=== PATIENT | female | born 1980 | race Caucasian/White ===

== ENCOUNTER → 2018-01-16 15:02 | Outpatient (CLI) | payer BC, SELFPAY ==
[2018-01-16 17:33] LABS: Absolute Lymphocyte Count 1.98 X10^3/ul (0.83-4.51); Absolute Neutrophil Count 2.3 X10^3/uL (2.0-7.7); Basophil# 0.08 X10^3/uL; Basophil% 1.6 % (0-1); Eosinophil# 0.19 X10^3/uL; Eosinophils% 3.8 % (0-5); Hematocrit 37.6 % (37-47); Hemoglobin 12.7 g/dl (12.0-15.0); Lymphocyte # 1.98 X10^3/ul (4.0); Lymphocyte % 39.6 % (19-41); Mean Corp Hgb Conc 33.8 g/gl (32-36); Mean Corpuscular Hgb 29.6 pg (27.0-32.0); Mean Corpuscular Volume 87.6 fL (81-99); Mean Platelet Vol. 11.9 fl (6.2-12.0); Monocyte# 0.44 X10^3/uL; Monocyte% 8.8 % (0-10); Platelet Count 152 K/mm3 (150-450); RBC Distribution Width CV 13.8 % (11.6-14.6); RBC Distribution Width SD 44.1 fl (35.1-43.9); Red Blood Count 4.29 M/mm3 (4.2-5.4)
[2018-01-16 17:50] LABS: POSITIVE COUNT NO; POSITIVE DIFFERENTIAL NO; POSITIVE MORPHOLOGY NO
[2018-01-16 17:59] LABS: ALB/GLOB Ratio 1.1 RATIO (0.9-2.4); AST(SGOT) 33 U/L (15-37); Alanine Aminotransfer ALT/SGPT 68 U/L (13-56); Albumin, Serum 3.8 g/dL (3.2-5.0); Alkaline Phosphatase 74 U/L (45-117); Anion Gap 6 (5-15); BUN 17 mg/dL (7-18); BUN/Creat Ratio 21.6 RATIO (10-20); Calcium,Total 8.4 mg/dL (8.5-10.1); Chloride 98 mmol/L (98-107); Creatinine, Serum 0.79 mg/dL (0.55-1.02); EST Glomerular Filtration Rate 86 mL/min (>60); Est Glom Filt Rate - Afr Amer 104 mL/min (>60); Globulin 3.4 g/dL (2.2-4.2); Glucose 82 mg/dL (74-106); Protein, Total 7.2 g/dL (6.4-8.2); Sodium Level 132 mmol/L (136-145); Thyroid Stim Hormone (TSH) 2.51 uIU/mL (0.358-3.74)
== END ==
PROVIDERS: Visit Provider Family Medicine
DX: Z00.00 Encounter for general adult medical examination without abnormal findings (principal); R17 Unspecified jaundice
CPT/HCPCS: 36415; 80053; 84443; 85025

== ENCOUNTER → 2018-08-25 15:57 | Outpatient (CLI) | payer BC, SELFPAY ==
[2018-08-29 12:48] LABS: HPV Reflexed? NOT INDICATED
== END ==
PROVIDERS: Referring Provider Obstetrics & Gynecology; Visit Provider Obstetrics & Gynecology
DX: Z12.4 Encounter for screening for malignant neoplasm of cervix (principal)
CPT/HCPCS: 87624; 88175; G0145

== ENCOUNTER → 2018-10-27 07:19 | Outpatient (CLI) | payer BC, SELFPAY ==
--- NOTE | 2018-10-27 07:31 | BI_ITS ---
MAMMOGRAPHY - BILATERAL SCREENING 3-D TOMOSYNTHESIS REASON FOR EXAM: Female, 38 years old. Baseline Bilateral Screening 3-D tomosynthesis PERTINENT HISTORY: No significant family history. TECHNIQUE: 2-D mammograms and 3-D Tomosynthesis of the breast (s) were performed. CAD was performed. COMPARISON: None. Baseline examination. FINDINGS: The breast composition is heterogeneously dense that can obscure small breast masses. Scattered benign calcifications are seen. No dense spiculated masses or suspicious microcalcifications are identified. No architectural distortion is identified. There is no skin thickening or retraction BI/SCREENING MAMM (CAD), BILAT IMPRESSION: No mammographic signs of malignancy. Routine yearly mammograms recommended. ASSESSMENT CATEGORY: BIRADS Category 1: Negative. A letter regarding these results will be sent to the patient by the facility within 30 days. FOLLOW UP RECOMMENDATION: Yearly follow up mammogram recommended. (A) Approximately 10% of breast cancers are not detected by mammography. A normal mammogram should not delay biopsy of a clinically suspicious abnormality. Electronically Signed: David Taylor MD at 13:44 EDT , Service support ,
== END ==
PROVIDERS: Visit Provider Obstetrics & Gynecology
DX: Z12.31 Encounter for screening mammogram for malignant neoplasm of breast (principal)
CPT/HCPCS: 77063; 77067

== ENCOUNTER → 2019-05-28 16:02 | Outpatient (CLI) | payer BC, SELFPAY ==
[2019-05-28 17:39] LABS: AST(SGOT) 22 U/L (15-37); Alanine Aminotransfer ALT/SGPT 33 U/L (13-56); Albumin, Serum 3.8 g/dL (3.2-5.0); Alkaline Phosphatase 74 U/L (45-117); Bilirubin, Direct 0.11 mg/dL (0.00-0.30); Globulin 3.1 g/dL (2.2-4.2); Protein, Total 6.9 g/dL (6.4-8.2)
== END ==
PROVIDERS: Family Provider Family Medicine; PCP Family Medicine; Visit Provider Family Medicine
DX: R94.5 Abnormal results of liver function studies (principal)
CPT/HCPCS: 36415; 80076

== ENCOUNTER → 2020-01-01 07:48 | Outpatient (CLI) | payer BC, SELFPAY ==
--- NOTE | 2020-01-01 07:57 | BI_ITS ---
MAMMOGRAPHY - BILATERAL SCREENING 3-D TOMOSYNTHESIS REASON FOR EXAM: Female, 39 years old. Routine screening PERTINENT HISTORY: NO FM HX , LT IMF MOLE MARKED. TECHNIQUE: 2-D mammograms and 3-D Tomosynthesis of the breast (s) were performed. CAD was performed. COMPARISON: 10/27/2018 FINDINGS: The breast composition is composed of scattered fibroglandular density. Scattered benign calcifications are seen. No dense spiculated masses or suspicious microcalcifications are identified. No architectural distortion is identified. There is no skin thickening or retraction. There has been no significant change since the prior study. BI/SCREEN MAMM (CAD) W/IRINEO BILAT IMPRESSION: No mammographic signs of malignancy. Routine yearly mammograms recommended. ASSESSMENT CATEGORY: BIRADS Category 1: Negative. A letter regarding these results will be sent to the patient by the facility within 30 days. FOLLOW UP RECOMMENDATION: Yearly follow up mammogram recommended. (A) Approximately 10% of breast cancers are not detected by mammography. A normal mammogram should not delay biopsy of a clinically suspicious abnormality. Electronically Signed: Madhu Sung MD at 8:48 EDT , Service support ,
== END ==
PROVIDERS: PCP Family Medicine; Referring Provider Obstetrics & Gynecology; Visit Provider Obstetrics & Gynecology
DX: Z12.31 Encounter for screening mammogram for malignant neoplasm of breast (principal)
CPT/HCPCS: 77063; 77067

== ENCOUNTER → 2020-03-11 11:40 | Outpatient (CLI) | payer BC, SELFPAY ==
[2020-03-11 15:45] LABS: Thyroid Stim Hormone (TSH) 1.79 uIU/mL (0.358-3.74)
== END ==
PROVIDERS: PCP Family Medicine; Visit Provider Family Medicine
DX: F41.0 Panic disorder [episodic paroxysmal anxiety] (principal)
CPT/HCPCS: 36415; 84443

== ENCOUNTER → 2020-09-21 | Outpatient (CLI) | payer BC, SELFPAY ==
[2020-09-26 15:39] LABS: HPV Reflexed? NOT INDICATED
== END | disposition home or self-care (01) ==
LOC: LABSPEC 14:48
PROVIDERS: PCP Family Medicine; Visit Provider Obstetrics & Gynecology
DX: Z12.4 Encounter for screening for malignant neoplasm of cervix (principal)
CPT/HCPCS: 88175; G0145

== ENCOUNTER → 2020-10-05 16:38 | Outpatient (CLI) | payer BC, SELFPAY ==
--- NOTE | 2020-10-05 16:30 | EMB_PTH ---
PATIENT: EKTA HODGE LOC: [facility] U#:[id number] AGE/SX: 44/F ROOM: RE10/05/[address]: Dr. Jones Noguera MD : 1980 BED: DIS: SPEC #: [id number] RECD: 10/05/20 17:01 STATUS: EUGENE REPaloma #: [id number] KAREN: 10/05/20 16:[address]: Jones Noguera DEPT: SURGICAL PATHOLOGY RECD BY: Mary Sandoval ENTERED: 10/06/20 07:19 SP TYPE: ENDOM BX/C MATT DR: Dr. Terri Hennessy MD Tissues: Endometrium, NOS Procedures: Surgery Specimen Level IV HEADER OPERATION: Endometrial biopsy PRE-OP DIAGNOSIS: N92.4 TISSUE SUBMITTED: Endometrial biopsy MICROSCOPIC DIAGNOSIS Endometrial biopsy: Proliferative endometrium. SJ:trace 10/07/2020 MICROSCOPIC DESCRIPTION Slides are reviewed. GROSS DESCRIPTION Received in fixative is one container labeled with the patient's name and designated EM biopsy. The specimen consists of multiple fragments of hemorrhagic soft tissue mixed with mucoid tissue that in aggregate measure 3 x 2.5 x 0.3 cm. The specimen is totally submitted in one cassette. / SJ:trace 10/06/20 TC:4 CPT: 97039
== END ==
PROVIDERS: PCP Family Medicine; Visit Provider Obstetrics & Gynecology
DX: N92.4 Excessive bleeding in the premenopausal period (principal)
CPT/HCPCS: 88305

== ENCOUNTER 2020-11-21 08:59 | Day surgery (SDC) | payer BC, SELFPAY ==
[2020-11-16 14:46] LABS: Hematocrit 40.4 % (37-47); Hemoglobin 13.2 g/dL (12.0-15.0); Mean Corp Hgb Conc 32.7 g/dL (32-36); Mean Corpuscular Hgb 28.9 pg (27.0-32.0); Mean Corpuscular Volume 88.6 fL (81-99); Mean Platelet Vol. 10.3 fl (6.2-12.0); Platelet Count 203 K/mm3 (150-450); RBC Distribution Width CV 12.9 % (11.6-14.6); RBC Distribution Width SD 42.1 fl (35.1-43.9); Red Blood Count 4.56 M/mm3 (4.2-5.4)
[2020-11-16 14:53] LABS: Partial Thromboplast Time 25.9 Seconds (24.1-36.2); Prothrombin Time (Protime)PT. 12.1 SECONDS (11.7-14.9)
[2020-11-16 15:28] LABS: Thyroid Stim Hormone (TSH) 2.21 uIU/mL (0.358-3.74)
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
[2020-11-21] VITALS (8 sets, daily range): BP systolic 102–120; BP diastolic 57–83; PULSE 46–61; RESP 16–18; TEMP 36.2–36.7; O2SAT 98–100; BMI 26.2
[2020-11-21] MEDS: Lactated Ringers 1,000 ML 100 ML IV (09:56)
--- NOTE | 2020-11-21 10:23 | PCM.OPRPT ---
Problems Associated Problem List Diagnoses (1) Menorrhagia: Report of Operation Date of Procedure: 11/21/20 Pre-Operative Diagnosis: Menorrhagia Post-Operative Diagnosis: Menorrhagia Surgery/Procedure Performed:: Diagnostic Hysteroscopy, Dilation and Curettage, Hydrothermal Ablation Description of Surgical Findings:: 8 cm endometrial cavity without evidence of polyps; multiple 1 to 2 cm fibroids palpated with the endometrial curette. Surgeon: Jones Noguera Type of Anesthesia: General (LMA) Anesthesiologist: Jessica Schmidt Specimen's removed: Endometrial curettings Estimated Blood Loss (mL): Minimal Fluids Replaced: Crystalloid Description of Procedure: Indication: This is a 40 year old patient who has been having problems with extremely heavy menses. Conservative measures have not been helpful. Endometrial sampling was benign and pelvic ultrasound showed that ablation may be helpful. Pt has been counseled regarding the risks, benefits and alternatives of this procedure and all questions answered. She understands that only about half of patients will have amenorrhea after this procedure. Procedure: Patient taken to the operating room where after induction of general anesthesia the patient was prepped and draped in the usual sterile fashion. Bladder was drained of urine with a catheter. Anterior cervix grasped and cervix was dilated to about 17 [place] size. Hysteroscopic hydrothermal ablation (HTA) unit was place in the cervix and the above findings were noted. HTA unit was removed and the uterus was gently curretted removing all contents. An HTA ablation cycle was then carried out at about 90 degrees Centigrade for 10 minutes with virtually no fluid loss during the procedure. After an appropriate cool down the HTA unit was removed with minimal bleeding noted. The patient tolerated the procedure well and was taken to the recovery room in satisfactory condition. Sponge, instruments and needle counts were all correct. There were no apparent complications of the surgery. Cefotan 2 gms IV was given prior to the procedure. Estimated Blood Loss: Minimal Specimen to Pathology: Endometrial Curettings Grafts/Implants Used: None Complications None Admit VTE Documentation VTE Present on Admission: Yes VTE Mechan Device Prophylaxis: SCD's
--- NOTE | 2020-11-21 10:27 | PCM.DC ---
Discharge Instructions Diet Discharge Diet: No restrictions (Increase fluid intake for the next 48 hours.) and - (Increase fluid intake for 48 hours.) Activity Discharge Activity: Return to Normal Activity, May Shower and May Take a Tub Bath (in 7 days) May resume sexual activity in: 3 weeks Additional Activity Instructions:: Ambulate often the next week after surgery. Nothing in the vagina for 3 weeks. Dressing / Incision Call your doctor if you observe: Fever of 101 or Higher, Inability to urinate, Inability to have a bowel movement and Using more than one pad per hour Additional Dressing/Incision Instructions:: Nothing in the vagina for3 weeks please; Use Ibuprophen 800 mg orally every 8 hours as needed for pain. Can also add Tylenol 1000 mg every 8 hours if needed for pain. If Ibuprophen and Tylenol are not effective then use the Oxycodone but keep in mind it can cause constipation issues. Drink lots of water. Call if bleeding more than a pad per hour. Steps and walking are OK. Activity is encouraged but do not over do it !! Follow Up Care Please Follow Up With: Jones Noguera MD When: Call [phone] for an appointment in 3 to 4 weeks. Test Results: Test results from this visit will be discussed in further detail at your follow-up appointment, if applicable. Discharge Plan Admission Primary Reason for Your Visit: Endometrial Ablation Attending Provider: Jones Noguera Primary Care Provider: Terri Hennessy Discharge Orders/Prescriptions Prescriptions: New oxycodone 5 mg capsule 5 mg PO Q6H PRN (Reason: pain (scale score 7-10)) 7 Days Qty: 5 RF: 0 Continued multivitamin Tablet 1 tab PO DAILY RF: 0 carica papaya [Papaya Enzyme] Tablet 2 tab PO TID RF: 0 cholecalciferol (vitamin D3) [Vitamin D3] 25 mcg (1,000 unit) Tablet 25 mcg PO DAILY RF: 0 Referrals / Follow Up: Terri Hennessy MD [Primary Care Provider] - Disposition Disposition (needs filled in before D/C Order can be placed): Home, self care
[2020-11-21] MEDS: Cefotetan 2 GM in 0.9% NS 100 ML IV (10:30)
--- NOTE | 2020-11-21 11:05 | EMB_PTH ---
PATIENT: EKTA HODGE [place] [facility] [id number] AGE/SX: 40/F ROOM: RE11/21/[address]: Dr. Jones Noguera MD : 1980 BED: DIS: 11/21/2020 SPEC #: [id number] RECD: 11/21/20 12:23 STATUS: EUGENE REQ #: [id number] KAREN: 11/21/20 11:[address]: Jones Noguera DEPT: SURGICAL PATHOLOGY RECD BY: Mary Sandoval ENTERED: 11/21/20 12:59 SP TYPE: ENDOM BX/C OTHR DR: Dr. Terri Hennessy MD Tissues: Endometrium, NOS Procedures: Surgery Specimen Level IV HEADER OPERATION: Hysteroscopy, D & C hydroablation PRE-OP DIAGNOSIS: Premenopausal menorrhagia TISSUE SUBMITTED: Endometrial curettings MICROSCOPIC DIAGNOSIS Endometrial curettings: Weakly secretory endometrium with extensive glandular and stromal breakdown. See comment. SJ:trace 11/22/2020 COMMENT Please make reference to previous specimen ([id number]) endometrial biopsy with diagnosis of ?proliferative endometrium.? MICROSCOPIC DESCRIPTION Slides are reviewed. GROSS DESCRIPTION Received in fixative is one container labeled with the patient's name and designated endometrial curettings. The specimen consists of multiple irregular fragments of kaye-pink soft tissue that in aggregate measure 2.5 x 1.5 x 0.2 cm. The specimen is totally submitted in one cassette. / DARIA:trace 11/21/20 TC:5 CPT: 36784
[2020-11-21] MEDS: oxyCODONE 5 MG Tablet PO (12:40)
== END 2020-11-21 13:38 | disposition home or self-care (01) ==
LOC: SDC 09:00 → AC 09:19
PROVIDERS: PCP Family Medicine; Referring Provider Obstetrics & Gynecology; Visit Provider Obstetrics & Gynecology
PROC: 0U5B8ZZ Destruction of Endometrium, Via Natural or Artificial Opening Endoscopic (ICD-10-PCS; CPT 58563; principal; 2020-11-21 10:50)
DX: N92.4 Excessive bleeding in the premenopausal period (principal); Z20.822 Contact with and (suspected) exposure to COVID-19
CPT/HCPCS: 58563; 36415; 84443; 85027; 85610; 85730; 86850; 86900; 86901; 87426; 88305; C9803; J7120; J2405

== ENCOUNTER → 2021-01-02 07:36 | Outpatient (CLI) | payer BC, SELFPAY ==
[2020-11-21 09:44] VITALS: BMI 26.2
--- NOTE | 2021-01-02 07:38 | BI_ITS ---
MAMMOGRAPHY - BILATERAL SCREENING REASON FOR EXAM: Female, 40 years old. Routine annual screening examination. PERTINENT HISTORY: Non-contributory. TECHNIQUE: Digital bilateral breast irineo (3D mammographic acquisition) in the CC and MLO projections. 2-D mediolateral oblique (MLO) and craniocaudad (CC) views of both breasts were obtained. CAD: Full Field Digital Mammography with Computer Added Detection was performed. COMPARISON: Comparison is made with prior study dated 01/01/2020 and 10/27/2018. FINDINGS: Breast Composition: The breasts are heterogeneously dense, which may obscure small masses. There are no dominant masses or suspicious calcifications. No other significant abnormalities are identified. There has been no significant change since the prior study. BI/SCRN MAMM (CAD)W/IRINEO BILAT IMPRESSION: Stable bilateral screening mammogram. Yearly follow-up mammogram recommended. (A) ASSESSMENT CATEGORY: BIRADS Category 1: Negative. A letter regarding these results will be sent to the patient by the facility within 30 days. Approximately 10% of breast cancers are not detected by mammography. A normal mammogram should not delay biopsy of a clinically suspicious abnormality. [id number] Electronically Signed: Nicholas Lizama MD at 9:31 EDT , Service support ,
== END ==
PROVIDERS: PCP Family Medicine; Referring Provider Obstetrics & Gynecology; Visit Provider Obstetrics & Gynecology
DX: Z12.31 Encounter for screening mammogram for malignant neoplasm of breast (principal)
CPT/HCPCS: 77063; 77067

== ENCOUNTER → 2022-01-26 | Outpatient (CLI) | payer BC, SELFPAY ==
--- NOTE | 2022-01-26 08:08 | BI_ITS ---
MAMMOGRAPHY - BILATERAL SCREENING REASON FOR EXAM: Female, 41 years old. Routine annual screening examination. PERTINENT HISTORY: Non-contributory. TECHNIQUE: Digital bilateral breast irineo (3D mammographic acquisition) in the CC and MLO projections. 2-D mediolateral oblique (MLO) and craniocaudad (CC) views of both breasts were obtained. CAD: Full Field Digital Mammography with Computer Added Detection was performed. COMPARISON: Comparison is made with prior study dated 01/02/2021 and 01/01/2020. FINDINGS: Breast Composition: The breasts are heterogeneously dense, which may obscure small masses. There are no dominant masses or suspicious calcifications. No other significant abnormalities are identified. There has been no significant change since the prior study. BI/SCRN MAMM (CAD)W/IRINEO BILAT IMPRESSION: Stable bilateral screening mammogram. Yearly follow-up mammogram recommended. (A) ASSESSMENT CATEGORY: BIRADS Category 1: Negative. A letter regarding these results will be sent to the patient by the facility within 30 days. Approximately 10% of breast cancers are not detected by mammography. A normal mammogram should not delay biopsy of a clinically suspicious abnormality. [id number] Electronically Signed: Nicholas Lizama MD at 10:22 EDT ,
== END | disposition home or self-care (01) ==
PROVIDERS: PCP Family Medicine; Referring Provider Obstetrics & Gynecology; Visit Provider Obstetrics & Gynecology
DX: Z12.31 Encounter for screening mammogram for malignant neoplasm of breast (principal)
CPT/HCPCS: 77063; 77067

== ENCOUNTER → 2023-02-15 | Outpatient (CLI) | payer BC, SELFPAY ==
[2023-02-21 14:09] LABS: HPV APTIMA, High Risk Negative (Negative)
== END | disposition home or self-care (01) ==
LOC: LABSPEC 15:33
PROVIDERS: PCP Family Medicine; Visit Provider Nurse Practitioner Women's Health
DX: Z12.4 Encounter for screening for malignant neoplasm of cervix (principal)
CPT/HCPCS: 87624; 88175; G0145

== ENCOUNTER → 2023-04-05 | Outpatient (CLI) | payer BC, SELFPAY ==
--- NOTE | 2023-04-05 10:39 | BI_ITS ---
MAMMOGRAPHY - BILATERAL SCREENING REASON FOR EXAM: Female, 42 years old. Routine annual screening examination. PERTINENT HISTORY: Non-contributory. TECHNIQUE: Digital bilateral breast irineo (3D mammographic acquisition) in the CC and MLO projections. 2-D mediolateral oblique (MLO) and craniocaudad (CC) views of both breasts were obtained. CAD: Full Field Digital Mammography with Computer Added Detection was performed. COMPARISON: Comparison is made with prior study dated January 26, 2022 and January 02, 2021. FINDINGS: Breast Composition: The breasts are heterogeneously dense, which may obscure small masses. There are no dominant masses or suspicious calcifications. No other significant abnormalities are identified. There has been no significant change since the prior study. BI/SCRN MAMM (CAD)W/IRINEO BILAT IMPRESSION: Stable bilateral screening mammogram. Yearly follow-up mammogram recommended. (A) ASSESSMENT CATEGORY: BIRADS Category 1: Negative. A letter regarding these results will be sent to the patient by the facility within 30 days. Approximately 10% of breast cancers are not detected by mammography. A normal mammogram should not delay biopsy of a clinically suspicious abnormality. [id number] Electronically Signed: Nicholas Lizama MD at 11:32 EDT ,
== END | disposition home or self-care (01) ==
LOC: OPBI 10:36
PROVIDERS: PCP Family Medicine; Visit Provider Family Medicine
DX: Z12.31 Encounter for screening mammogram for malignant neoplasm of breast (principal)
CPT/HCPCS: 77063; 77067

== ENCOUNTER → 2024-06-05 | Outpatient (CLI) | payer BC, SELFPAY ==
--- NOTE | 2024-06-05 14:48 | BI_ITS ---
MAMMOGRAPHY - BILATERAL SCREENING REASON FOR EXAM: Female, 43 years old. Routine annual screening examination. PERTINENT HISTORY: Non-contributory. TECHNIQUE: Digital bilateral breast irineo (3D mammographic acquisition) in the CC and MLO projections. 2-D mediolateral oblique (MLO) and craniocaudad (CC) views of both breasts were obtained. CAD: Full Field Digital Mammography with Computer Added Detection was performed. COMPARISON: Comparison is made with prior study April 05, 2023 and January 26, 2022. FINDINGS: Breast Composition: The breasts are heterogeneously dense, which may obscure small masses. There are no dominant masses or suspicious calcifications. No other significant abnormalities are identified. There has been no significant change since the prior study. BI/SCRN MAMM (CAD)W/IRINEO BILAT IMPRESSION: Stable bilateral screening mammogram. Yearly follow-up mammogram recommended. (A) ASSESSMENT CATEGORY: BIRADS Category 1: Negative. A letter regarding these results will be sent to the patient by the facility within 30 days. Approximately 10% of breast cancers are not detected by mammography. A normal mammogram should not delay biopsy of a clinically suspicious abnormality. [id number] Electronically Signed: Nicholas Lizama MD at 9:36 EST ,
--- NOTE | 2024-06-05 14:48 | BI_ITS ---
MAMMOGRAPHY - BILATERAL SCREENING REASON FOR EXAM: Female, 43 years old. Routine annual screening examination. PERTINENT HISTORY: Non-contributory. TECHNIQUE: Digital bilateral breast irineo (3D mammographic acquisition) in the CC and MLO projections. 2-D mediolateral oblique (MLO) and craniocaudad (CC) views of both breasts were obtained. CAD: Full Field Digital Mammography with Computer Added Detection was performed. COMPARISON: Comparison is made with prior study April 05, 2023 and January 26, 2022. FINDINGS: Breast Composition: The breasts are heterogeneously dense, which may obscure small masses. There are no dominant masses or suspicious calcifications. No other significant abnormalities are identified. There has been no significant change since the prior study. BI/SCRN MAMM (CAD)W/IRINEO BILAT IMPRESSION: Stable bilateral screening mammogram. Yearly follow-up mammogram recommended. (A) ASSESSMENT CATEGORY: BIRADS Category 1: Negative. A letter regarding these results will be sent to the patient by the facility within 30 days. Approximately 10% of breast cancers are not detected by mammography. A normal mammogram should not delay biopsy of a clinically suspicious abnormality. [id number] Electronically Signed: Nicholas Lizama MD at 9:36 EST ,
== END | disposition home or self-care (01) ==
LOC: OPBI 14:46
PROVIDERS: PCP Family Medicine; Referring Provider Family Medicine; Visit Provider Family Medicine
DX: Z12.31 Encounter for screening mammogram for malignant neoplasm of breast (principal)
CPT/HCPCS: 77063; 77067

== ENCOUNTER 2024-08-21 09:22 | Day surgery (SDC) | payer BC, OTHER, SELFPAY ==
--- NOTE | 2024-08-21 09:36 | PCM.PRE.AN2 ---
ASA Classification* ASA Classification ASA Classification: 2 Assessment & Plan Anesthesia* Anesthesia Assessment Anesthesia Assessment: Discussed sedation and/or anesthesia options, risks, benefits, and alternatives with patient/parents/legal guardian/POA. Questions invited. The patient/parents/legal guardian/POA seems to understand and agrees to proceed with anesthesia plan. Reviewed the physical assessment, medical history, allergy history and patient home medications list prior to surgery/procedure/anesthetic and documented any changes. Performed airway and anesthesia risk assessments. Anesthesia Type Anesthesia Type: MAC Anesthesia Focused Assessment* Airway Assessment Mouth opens: >3 cm Mallampati Score: II Focused Labs Anesthesia Preop lab: CBC WBC 7.0 K/mm3 (4.4-11.0) 11/16/20 14:24 11/16/20 RBC 4.56 M/mm3 (4.2-5.4) 11/16/20 14:24 11/16/20 Hgb 13.2 g/dL (12.0-15.0) 11/16/20 14:24 11/16/20 Hct 40.4 % (37-47) 11/16/20 14:24 11/16/20 Plt Count 203 K/mm3 (150-450) 11/16/20 14:24 11/16/20 CHEMISTRY Potassium 4.0 mmol/L (3.5-5.1) 01/16/18 15:07 01/16/18 Sodium 132 mmol/L (136-145) L 01/16/18 15:07 01/16/18 BUN 17 mg/dL (7-18) 01/16/18 15:07 01/16/18 Creatinine 0.79 mg/dL (0.55-1.02) 01/16/18 15:07 01/16/18 Glucose 82 mg/dL (74-106) 01/16/18 15:07 01/16/18 TSH 2.21 uIU/mL (0.358-3.74) 11/16/20 14:24 11/16/20 COAG PT 12.1 SECONDS (11.7-14.9) 11/16/20 14:24 11/16/20 Pre-Assessment Diagnosis/Proposed Procedure Planned Operative Procedure(s): COLONOSCOPY-OA Anesthesia History Anesthesia History - promotions coordinator: Anesthesia History - promotions coordinator Hx Hospitalization No 08/18/24 15:45 Any Problems With Anesthesia No 08/18/24 15:45 Cholinesterase deficiency No 08/18/24 15:45 You/Your Family Experience No 08/18/24 15:45 fever (hyperthermia) with Relationship Recent Exposure to Contagious No 11/21/20 09:41 Disease Does patient have nerve No 08/18/24 15:45 stimulator Patient instructed to have device shut off --Does patient have Pacemaker or ICD? When Was Last Pacemaker Check QUESTION #4 FULL TEXT: You/Your Family Experience fever (hyperthermia) with Anesthesia Last Oral Intake Last Oral intake: Last Oral Intake NPO since Meds taken in AM with sips of water? Meds patient instructed to take am of surgery PONV PONV - promotions coordinator: PONV - promotions coordinator Female Yes 08/18/24 15:45 HX of Motion Sickness Yes 08/18/24 15:45 HX of N/V After Surgery No 08/18/24 15:45 Non-Smoker Yes 08/18/24 15:45 Duration of Surgery greater No 08/18/24 15:45 than 60 minutes Number of Risk Factors 3 08/18/24 15:45 PONV Score Moderate Risk 08/18/24 15:45 Height & Weight Height & Weight: Anesthesia: Height & Weight Height 5 ft 3 in 07/24/24 10:55 Respiratory Assessment Respiratory Assessment - promotions coordinator: Respiratory Tract Infection Hx - promotions coordinator Hx Respiratory Tract Infection No 08/18/24 15:45 STOP Sleep Apnea STOP Sleep Apnea - promotions coordinator: STOP Sleep Apnea - promotions coordinator Hx Hypertension No 08/18/24 15:45 Hx Sleep Apnea No 08/18/24 15:45 CPAP BIPAP Do you snore loudly (louder No 08/18/24 15:45 than talking or can be heard Do you often feel tired/ No 08/18/24 15:45 fatigued/ sleepy during daytime? Has anyone observed you stop No 08/18/24 15:45 breathing during sleep? STOP Results Negative 08/18/24 15:45 QUESTION #5 FULL TEXT : Do you snore loudly (louder than talking or can be heard through closed doors)? Tobacco Use History Tobacco Use History - promotions coordinator: Tobacco Use History - promotions coordinator Tobacco Use Non-smoker 11/14/20 09:23 Smoking Status Never smoker 08/18/24 15:45 Hx Tobacco Use No 08/18/24 15:45 Years Smoking Packs Smoked per Day Smoking Cessation Date was within the last 15 years Hx Smoking Cessation Date Hx Smoking Cessation Counseling Hematologic Medial History Hematologic Hx - promotions coordinator: Hematologic Medical Hx - emergency room physician Hx of Blood Transfusion No 08/18/24 15:45 Hx of Transfusion in last 3 No 08/18/24 15:45 Months Date of Last Transfusion (if within last 3 months) Ever experience any problems No 08/18/24 15:45 with transfusion(s)? Specify any problems Hx of Preganancy in last 3 No 08/18/24 15:45 Months Nurse Filling Out Transfusion VCHRISTIN 08/18/24 15:45 & Questions: Date: 08/18/24 08/18/24 15:45 Time: 15:46 08/18/24 15:45 Patient unable to answer at this time (ie. confused, unrespo /Reproduction History /Reproductive History - promotions coordinator: /Reproductive Hx- promotions coordinator Hx Now No 08/18/24 15:45 Gestational Age (in weeks): EDC: Hx Hx Para Hx Section SAB No 08/18/24 15:45 [facility] Medical History Non-smoker Factor 5 Leiden mutation, heterozygous Wears glasses Hearing loss, left Anemia GERD (gastroesophageal reflux disease) Home Medications ?Medication ?Instructions ?Recorded ?Last Taken ?Type cholecalciferol (vitamin D3) 25 25 mcg PO DAILY 11/14/20 Unknown History mcg (1,000 unit) tablet (Vitamin D3) multivitamin 1 tab PO DAILY 11/14/20 Unknown History chromium picolinate 400 mcg tablet 400 mcg PO QDAY 07/24/24 Unknown History herbal drugs 1 tab PO QDAY 07/24/24 08/16/24 History magnesium oxide 400 mg PO QDAY 07/24/24 Unknown History omega-3 fatty acids 1,000 mg 1,000 mg PO QDAY 07/24/24 08/17/24 History capsule Allergy/AdvReac Type Severity Reaction Status Date / Time No Known Allergies Allergy Verified 08/21/24 09:40 Surgical History History of hysteroscopy Hx of dilation and curettage Hx of tubal ligation (~02/26/11) Hx of wisdom tooth extraction Hx of section (~02/26/11) Social History household members: spouse current occupational status: employed current occupation: Self Smoking Status: Never smoker substance use type: does not use Review of Systems (Anesthesia) ROS Narrative System reviewed and no additional complaints, except as documented.
[2024-08-21 09:42] VITALS: BP 119/72; PULSE 59; RESP 16; TEMP 36.6; O2SAT 100; BMI 27.4
--- NOTE | 2024-08-21 10:20 | PCM.HP.STD ---
[facility] - General General Date of Admission: 08/21/24 Date of Service: 08/21/24 Chief Complaint: Screening colonoscopy screening colonoscopy HPI Narrative EKTA HODGE, is a 43 F who presents for screening colonoscopy. She has had no previous colonoscopy. No family history of colon polyps or colon cancers. She denies any GI symptoms or problems [facility] Medical History Non-smoker Factor 5 Leiden mutation, heterozygous Wears glasses Hearing loss, left Anemia GERD (gastroesophageal reflux disease) Home Medications ?Medication ?Instructions ?Recorded ?Last Taken ?Type cholecalciferol (vitamin D3) 25 25 mcg PO DAILY 11/14/20 Unknown History mcg (1,000 unit) tablet (Vitamin D3) multivitamin 1 tab PO DAILY 11/14/20 Unknown History chromium picolinate 400 mcg tablet 400 mcg PO QDAY 07/24/24 Unknown History herbal drugs 1 tab PO QDAY 07/24/24 08/16/24 History magnesium oxide 400 mg PO QDAY 07/24/24 Unknown History omega-3 fatty acids 1,000 mg 1,000 mg PO QDAY 07/24/24 08/17/24 History capsule Allergy/AdvReac Type Severity Reaction Status Date / Time No Known Allergies Allergy Verified 08/21/24 09:40 Surgical History History of hysteroscopy Hx of dilation and curettage Hx of tubal ligation (~02/26/11) Hx of wisdom tooth extraction Hx of section (~02/26/11) Social History household members: spouse current occupational status: employed current occupation: Self Smoking Status: Never smoker substance use type: does not use ROS Constitutional Constitutional: Reports systems reviewed and no addt'l complaints, except as documented Eyes Eyes: Reports systems reviewed and no addt'l complaints, except as documented ENT HEENT: Reports systems reviewed and no addt'l complaints, except as documented Cardiovascular Cardiovascular: Reports systems reviewed and no addt'l complaints, except as documented Respiratory/Chest Respiratory/Chest: Reports systems reviewed and no addt'l complaints, except as documented Gastrointestinal Gastrointestinal: Reports systems reviewed and no addt'l complaints, except as documented Genitourinary Genitourinary: Reports systems reviewed and no addt'l complaints, except as documented Musculoskeletal Musculoskeletal: Reports systems reviewed and no addt'l complaints, except as documented Vital Signs Vital Signs Vital Signs: 08/21/24 09:42 08/21/24 09:42 Temperature 97.8 F Temperature Source Temporal Pulse Rate 59 L Respiratory Rate 16 Respiratory Pattern Normal Blood Pressure 119/72 Blood Pressure Mean 87 Blood Pressure Source Monitor Blood Pressure Position Semi-Fowlers Blood Pressure Location Right Arm Pulse Ox 100 Oxygen Delivery Method Room Air Weight Weight: 155 lb Body Mass Index (BMI) 27.4 Physical Exam Const alert, oriented x3 and no apparent distress Assessment & Plan Assessment/Plan (1) Encounter for screening for malignant neoplasm of colon: PLAN: Plan The patient is a 43-year-old female in need of a screening colonoscopy. We discussed the details of the planned procedure and she wishes to proceed. This will begin momentarily
[2024-08-21 11:05] VITALS: BP 119/72; BP 88/47; PULSE 61; RESP 14; TEMP 36.1; O2SAT 100
[2024-08-21 11:10] VITALS: BP 119/72; BP 92/54; PULSE 53; RESP 14; O2SAT 100
--- NOTE | 2024-08-21 11:12 | OP.COLON_ITS ---
Patient Name: Christine Aly Procedure Date: 08/21/2024 10:19 AM Date of : 1980 Age: 43 Procedure: Colonoscopy Indications: Screening for colorectal malignant neoplasm Providers: Finn Campbell MD Medicines: Monitored Anesthesia Care Patient Profile: Refer to note in patient chart for documentation of history and physical. Last Colonoscopy: none. The patient's first colonoscopy is today. Complications: No immediate complications. Estimated blood loss: None. Procedure: Pre-Anesthesia Assessment: - Prior to the procedure, a History and Physical was performed, and patient medications and allergies were reviewed. The patient's tolerance of previous anesthesia was also reviewed. The risks and benefits of the procedure and the sedation options and risks were discussed with the patient. All questions were answered, and informed consent was obtained. Prior Anticoagulants: The patient has taken no anticoagulant or antiplatelet agents. ASA Grade Assessment: II - A patient with mild systemic disease. After reviewing the risks and benefits, the patient was deemed in satisfactory condition to undergo the procedure. After I obtained informed consent, the scope was passed under direct vision. Throughout the procedure, the patient's blood pressure, pulse, and oxygen saturations were monitored continuously. The adult colonoscope was introduced through the anus and advanced to the cecum, identified by appendiceal orifice and ileocecal valve. The ileocecal valve, appendiceal orifice, and rectum were photographed. The entire colon was well visualized. The colonoscopy was somewhat difficult due to a tortuous colon. Successful completion of the procedure was aided by using manual pressure. The patient tolerated the procedure well. The quality of the bowel preparation was fair. Moderate Sedation: See the other procedure note for documentation of moderate sedation with intraservice time. See the other procedure note for documentation of moderate sedation with intraservice time. Scope In: 10:31:35 AM Scope Withdrawal Time 0 hours 9 minutes 29 seconds Scope Out: 10:59:28 AM Total Procedure Duration Time 0 hours 27 minutes 53 seconds Findings: The perianal and digital rectal examinations were normal. A diffuse area of mildly melanotic mucosa was found in the entire colon. The exam was otherwise without abnormality on direct and retroflexion views. Impression: - Preparation of the colon was fair. - No specimens collected. Recommendation: - Discharge patient to home (ambulatory). - High fiber diet. - Repeat colonoscopy in 10 years for screening purposes. - Continue present medications. Finn Campbell MD 08/21/2024 11:11:36 AM This report has been signed electronically. Number of Addenda: 0 Note Initiated On: 08/21/2024 10:19 AM
--- NOTE | 2024-08-21 11:12 | OP.CCLET_ITS ---
08/21/2024 Terri Hennessy [place] [id number] [address] Re : Colonoscopy procedure for Chritsine Aly Dear Dr. Hennessy This procedure was performed on Wednesday, August 21, 2024. My impressions and recommendations are as follows: Impressions : - Preparation of the colon was fair. - No specimens collected. Recommendations : - Discharge patient to home (ambulatory). - High fiber diet. - Repeat colonoscopy in 10 years for screening purposes. - Continue present medications. My findings are described in the full procedure note, which is enclosed. If I can be of further assistance, please feel free to contact me at . Sincerely, Finn Campbell MD 08/21/2024 11:11:36 AM This report has been signed electronically.
--- NOTE | 2024-08-21 11:14 | PCM.POST.ANE ---
Anesthesia: Postop Eval I Current Vital Signs Temperature: 97 F Pulse Rate: 66 Blood Pressure: 88/47 Respiratory Rate: 16 Pulse Ox: 100 Oxygen Delivery Method: Room Air Assessment Airway patent: Yes Spontaneous unlabored respirations: Yes Mental status: Awake and Calm nausea: No Vomiting: No Anesthesia Complication: No Fluid Hydration Crystalloid volume administer (ml): 60 Total IV fluid infused: 60 Progress Note Anesthesia document: Postop Eval 1 completed: Yes
[2024-08-21 11:15] VITALS: BP 119/72; BP 88/47; BP 95/56; PULSE 50; PULSE 66; RESP 14; RESP 16; TEMP 36.1; O2SAT 100
[2024-08-21 11:18] VITALS: BP 119/72; BP 98/57; PULSE 55; RESP 14; TEMP 36.5; O2SAT 100
--- NOTE | 2024-08-21 11:26 | PCM.POSTANE2 ---
Anesthesia Postop Eval I Sum Postop Eval Completion status Anesthesia document: Postop Eval 1 completed: Yes Anesthesia Postop Eval I Summary Anesthesia Postop Eval I Summary: Anesthesia Postop Eval I: Assessment Summary Airway patent Yes 08/21/24 11:15 [email or web address] Spontaneous unlabored Yes 08/21/24 11:15 [email or web address] respirations Mental status Awake,Calm 08/21/24 11:15 [email or web address] nausea No 08/21/24 11:15 [email or web address] Vomiting No 08/21/24 11:15 [email or web address] Anesthesia Postop Eval I: Fluid Summary Crystalloid volume administer 60 08/21/24 11:15 [email or web address] (ml) Colloids volume administered ( ml) Blood Product volume administered (ml) Total IV fluid infused 60 08/21/24 11:15 [email or web address] Anesthesia Postop Eval I: Summary Notes Anesthesia Complication No 08/21/24 11:15 [email or web address] Anesthesia Complication Comment: Post-operative progress note Anesthesia: Postop Eval II Evaluation Mental status: Awake Pain Level: 0 nausea: No Vomiting: No
[2024-08-21 11:39] VITALS: BP 119/72
== END 2024-08-21 11:45 | disposition home or self-care (01) ==
LOC: EN 09:24 → AC 09:25
PROVIDERS: PCP Family Medicine; Referring Provider Family Medicine; Visit Provider Surgery
PROC: 0DJD8ZZ Inspection of Lower Intestinal Tract, Via Natural or Artificial Opening Endoscopic (ICD-10-PCS; CPT 45378; principal; 2024-08-21 10:25)
DX: Z12.11 Encounter for screening for malignant neoplasm of colon (principal); Q43.8 Other specified congenital malformations of intestine
CPT/HCPCS: 45378; A4216; J2405